=== PATIENT | male | born 1955 | race Caucasian/White ===

== ENCOUNTER 2021-02-27 19:59 | Observation (INO) | payer OTHER ==
[~2021-02-27] VITALS: Ht 188 cm; Wt 90.7 kg
--- NOTE | ~2021-02-27 | OP ---
[address] [address] OPERATIVE REPORT Name: MARGRET MUNIZ Room: [address] Nely Gillette#: [id number] Admission: 02/28/21 Attend Phys: Cooper Cintron DO Discharge: 02/28/21 Date of : 57 Report #: [id number] THIS REPORT FOR: cc: Wade Kelly John E. DO Kramer, Adam P. DO ~ cc: DO Dr. Jeremias Weiss is dictating on behalf of Dr. Cintron. PRIMARY CARE PHYSICIAN: Wade Kelly DO PREOPERATIVE DIAGNOSIS: Acute appendicitis. POSTOPERATIVE DIAGNOSIS: Acute appendicitis. PROCEDURE PERFORMED: Laparoscopic appendectomy. SURGEON: Cooper Cintron DO CO-SURGEON: Jeremias Yi DO, PGY5. HYSTER DRIVER: SHIRAZ Haley ANESTHESIA: General and regional. ESTIMATED BLOOD LOSS: 20 mL. SPECIMEN: Appendix. COMPLICATIONS: None. FINDINGS: Acute appendicitis with localized peritonitis. HISTORY OF PRESENT ILLNESS: The patient is a 65-year-old male who presented with a 2-day history of right lower quadrant abdominal pain that was persistent and increasing in severity. Upon arrival to the Emergency Room, CT scan did reveal acute appendicitis, which was confirmed by physical exam. Surgery was discussed at length including risks, benefits and alternatives. After consent was obtained, the patient was taken to the operating room and placed in the supine position. SCDs applied to bilateral lower extremities, safety belt placed across the patient's waist. Two grams Ancef given for surgical prophylaxis. General anesthesia was administered without complication. The patient's abdomen was prepped and draped in standard sterile fashion. [place] [id number] OPERATIVE REPORT Name: SAPPHIREDANIELLEMARGRET Garcia Room: [address] Nely Gillette#: [id number] Admission: 02/28/21 Attend Phys: Cooper Cintron DO Discharge: 02/28/21 Date of : 57 Report #: [id number] Timeout was performed confirming the patient, procedure. An 11 blade scalpel was used to make an incision just below the umbilicus in a transverse fashion. Electrocautery was used for hemostasis and dissect down to the level of fascia. The fascia was encountered, it was scored with electrocautery, grasped between 2 Kochers. Hemostat was used to bluntly enter into the peritoneum. Two stitches of 0 Vicryl were placed on either side of the fascia. The 5 mm Milena trocar was inserted into the abdomen and insufflation initiated. Abdomen was inspected. There was evidence of inflammation and some free fluid in the right lower quadrant along with localized peritonitis. The appendix was not obviously visualized immediately and another 5 mm trocar was placed suprapubic and under direct visualization, another 12 mm trocar was placed in the left lower quadrant under direct visualization. The tinea of the cecum was traced to the proximal cecum and the appendix was visualized on the lateral aspect of the abdominal wall. It was swept away from the abdominal wall and a Harmonic scalpel was used to go across the mesoappendix up to the base of the cecum. At this point, we fired a 45 purple load Endo-JULIET stapler device across the base of the appendix. Appendix was placed in laparoscopic EndoCatch bag. Staple lines were visualized and once hemostasis was assured, the right lower quadrant was irrigated and all fluid was suctioned out. All trocars were then removed under direct visualization. The appendix and its contents were removed from the supraumbilical trocar site. The infraumbilical fascia was reapproximated with one stitch of 0 Vicryl in a [id number] fashion. Subcutaneous tissues were reapproximated with 3-0 Vicryl. All skin incisions were reapproximated with 4-0 Monocryl. Needle, instrument and sponge counts were correct x 2 at the end of the case. The patient was then underwent bilateral TAP block by the anesthesia team and was transferred to PACU in stable condition. By: [id number] Cintron DO /yesica
[2021-02-27 20:04] VITALS: BP 124/54; BP 140/85
[2021-02-27 21:36] LABS: RDW-CV 14.7 % (10.5-14.5)
[2021-02-27 21:38] LABS: HEMATOCRIT 45.3 % (42.0-52.0); HEMOGLOBIN 15.4 gm/dL (14.0-18.0); MCH 29.9 pg (26.0-34.0); MCV 87.9 fL (80.0-100.0); MPV 8.9 fl. (7.2-11.1); NUCLEATED RBCS 0 /100WBC; RBC 5.15 mil/uL (4.50-6.00); WBC 13.7 thou/uL (4.0-11.0)
[2021-02-27 21:42] LABS: URINE BILIRUBIN NEGATIVE (Negative); URINE BLOOD TRACE (Negative); URINE CLARITY CLEAR; URINE COLOR YELLOW; URINE GLUCOSE-RANDOM NEGATIVE (Negative); URINE KETONES NEGATIVE (Negative); URINE LEUKOCYTES-REFLEX NEGATIVE (Negative); URINE NITRITE-REFLEX NEGATIVE (Negative); URINE PROTEIN NEGATIVE (Negative); URINE SPECIFIC GRAVITY 1.025 (1.005-1.030); URINE UROBILINOGEN 0.2 E.U./dl (0.2-1.0)
[2021-02-27 21:43] LABS: CALCIUM 8.6 mg/dL (8.5-10.1); CREATININE 0.9 mg/dL (0.6-1.3)
[2021-02-27 21:45] LABS: POTASSIUM 4.1 mmol/L (3.5-5.1)
[2021-02-27 21:53] LABS: ALBUMIN 3.5 g/dL (3.4-5.0); TOTAL BILIRUBIN 2.6 mg/dL (<0.1-1.0)
[2021-02-27 22:51] LABS: ABSOLUTE LYMPHOCYTES 1.2 thou/uL (0.8-5.3); ABSOLUTE MONOCYTES 0.5 thou/uL (0.0-1.2); ABSOLUTE NEUTROPHILS 11.9 thou/uL (1.6-8.1)
[2021-02-27 22:57] LABS: PLATELET ESTIMATE DECREASED
[2021-02-27 22:58] LABS: LARGE PLATELETS OCCASIONAL; PLATELET COUNT* 85 thou/uL (150-400)
[2021-02-27 23:49] VITALS: BP 132/68
[2021-02-28 02:31] VITALS: BP 145/79
[2021-02-28 08:00] VITALS: BP 142/77
[2021-02-28 09:25] VITALS: BP 145/79
[2021-02-28 12:46] VITALS: BP 146/83
[2021-02-28 13:58] VITALS: BP 145/79
--- NOTE | 2021-02-28 13:59 | NUR ---
1325: PATIENT DISCHARGED AT THIS TIME VIA WHEELCHAIR ACCOMPANIED BY THIS RN & TO PRIVATE VEHICLE. IV DC'D, COTTON AND BANDAID TO SITE. PRESCRIPTION SENT WITH PATIENT. DISCHARGE INSTRUCTIONS REVIEWED, ACKNOWLEDGED UNDERSTANDING. ALL QUESTIONS AND CONCERNS ADDRESSED. WORK RELEASE SENT HOME WITH PATIENT.
--- NOTE | 2021-03-02 12:07 | PATH ---
[address] [address] PATHOLOGY RPT PROCEDURE Name: MARGRET MUNIZ Room: [address] Leta#: [id number] Admission: 02/28/21 Date of : 57 Discharge: 02/28/21 Report #: [id number] Path Case #: [id number] [facility] Accession Number: [id number] . 01 Material submitted: . appendix - APPENDIX . 01 Clinician provided ICD-10: n . 01 Clinical history: . Appendicitis . 02 Diagnosis: Appendix: - Acute appendicitis, periappendicitis and serositis. (JOE:jimbo; 03/01/2021) QMS 03/01/2021 1314 Local . 02 Electronically signed: . Stevan Smith MD, Pathologist NPI- [id number] . 01 Gross description: . Fixative: Formalin Labeled: Margret Muniz, appendix Perforation: None, intact Appendix size: 4.2 cm in length by 1.1 cm in diameter Mesoappendix: Minimal Proximal margin: Inked black Serosa: [place], dusky and hemorrhagic Mucosa: [place] and slightly hemorrhagic Luminal diameter: Pinpoint Wall thickness: Averages 0.4 cm Lesions/abnormalities: A simple, intact diverticulum (0.9 x 0.6 x 0.5 cm) . A1-A3: Scientific Investigator sections of appendix to include the proximal margin (submitted en face), entirety of distal tip and diverticulum. ([place]; 02/28/2021) DKA/DKA 02/28/2021 1335 Local . 02 Pathologist provided ICD-10: K35.20 . 02 CPT . 555472 Specimen Comment: A courtesy copy of this report has been sent to [phone], [address] [place] [address] PATHOLOGY RPT PROCEDURE Name: MARGRET MUNIZ Room: [address]#: [id number] Admission: 02/28/21 Date of : 57 Discharge: 02/28/21 Report #: [id number] Path Case #: [id number] Specimen Comment: [id number] Specimen Comment: Report sent to / DR CLEMONS Specimen Comment: A duplicate report has been generated due to demographic updates. Performed at: [address] [facility] [address] [facility] [address], [place], [place] [id number] MD Grant Gibson MD Phone: [phone] Performed at: [address] [facility] [address] [place], [place] [id number] MD Stevan Smith MD Phone: [phone]
== END 2021-02-28 14:05 | disposition home or self-care (01) ==
LOC: M.ERS 19:59 → M.CL 23:49 → M.ERS 23:49 → M.TBA 23:49 → M.2W 02-28 01:30
PROVIDERS: Emergency Medicine; ADMIT Surgery; ATTEND Surgery
DX: K35.80 Unspecified acute appendicitis (principal); Z20.822 Contact with and (suspected) exposure to COVID-19